=== PATIENT | male | born 1980 | race Caucasian/White ===

== ENCOUNTER 2020-04-13 05:39 | Emergency (ER) | payer BC, OTHER ==
[~2020-04-13] VITALS: Ht 177.8 cm; Wt 81.7 kg
[~2020-04-13 05:39] MED LIST: FLEXERIL PO; IBUPROFEN 800800 MG PO; NO HOME MEDS; NORCO 5-325 TA1 EACH PO; NORFLEX100 MG PO; PERCOCET 7.5-51 EACH PO; UNKNOWN ANTIBIOTIC
[2020-04-13 07:43] LABS: HEMATOCRIT 43.5 % (42.0-52.0); HEMOGLOBIN 14.9 gm/dL (14.0-18.0); MCH 30.6 pg (26.0-34.0); MCHC 34.2 g/dL (28.0-37.0); MCV 89.4 fL (80.0-100.0); PLATELET COUNT 161 thou/uL (150-400); RBC 4.87 mil/uL (4.50-6.00); RDW 13.6 % (10.5-14.5); WBC 6.6 thou/uL (4.0-11.0)
[2020-04-13 07:48] LABS: ANION GAP 10 mmol/L (7-16); BUN 22 mg/dL (7-18); CALCIUM 9.2 mg/dL (8.5-10.1); CHLORIDE 104 mmol/L (98-107); CO2 26 mmol/L (21-32); CREATININE 1.1 mg/dL (0.7-1.3); GLUCOSE 92 mg/dL (74-106); POTASSIUM 3.6 mmol/L (3.5-5.1); SODIUM 140 mmol/L (136-145)
[2020-04-13 08:01] LABS: ALBUMIN 4.1 g/dL (3.4-5.0); SGOT 31 U/L (15-37); SGPT 52 U/L (30-65); TOTAL PROTEIN 7.8 g/dL (6.4-8.2); TROPONIN-I <0.06 ng/mL (<0.06)
[2020-04-13] MEDS ORDERED: PREDNISONE 20 M20 MG PO (09:07)
[2020-04-13] MEDS ORDERED: ZPAK PO (09:07)
[2020-04-13] MEDS ORDERED: ONDANSETRON ODT8 MG PO (09:07)
[2020-04-13 09:33] LABS: URINE BILIRUBIN NEGATIVE (Negative); URINE BLOOD NEGATIVE (Negative); URINE CLARITY CLEAR; URINE COLOR YELLOW; URINE GLUCOSE-RANDOM* NEGATIVE (Negative); URINE KETONES NEGATIVE (Negative); URINE LEUKOCYTES-REFLEX NEGATIVE (Negative); URINE NITRITE-REFLEX NEGATIVE (Negative); URINE PROTEIN (DIPSTICK) NEGATIVE (Negative); URINE SPECIFIC GRAVITY 1.025 (1.005-1.035); URINE UROBILINOGEN 0.2 E.U./dl (0.2-1.0)
--- NOTE | 2020-04-13 09:43 | EKG ---
[facility] [place] [address] ELECTROCARDIOGRAM REPORT Name: RUSSELL TRACY Room #: REG [facility]..#: [id number] Admission: 04/13/20 Attend Phys: Discharge: Date of : 76 Report #: [id number] THIS REPORT FOR: cc: Mushtaq Burger MD, Neal A. MD Santiago, Patrick MD [facility] ~ THIS REPORT FOR: //name// 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
[2020-04-13 10:04] LABS: ATYPICAL LYMPHS 1 %; LARGE PLATELETS OCCASIONAL; PLATELET ESTIMATE NORMAL
[2020-04-13 11:23] VITALS: BP 100/64
== END 2020-04-13 11:34 | disposition home or self-care (01) ==
LOC: ER 05:39
PROVIDERS: Emergency Medicine
DX: U07.1 COVID-19 (principal); E86.0 Dehydration; R06.00 Dyspnea, unspecified; R11.2 Nausea with vomiting, unspecified; J06.9 Acute upper respiratory infection, unspecified; F17.210 Nicotine dependence, cigarettes, uncomplicated